=== PATIENT | male | born 1990 | race Caucasian/White ===

== ENCOUNTER 2019-04-15 10:34 | Emergency (ER) | payer BC ==
[2019-04-15] MEDS ORDERED: Lidocaine 1% 10 ML MDV ONE (12:30)
--- NOTE | 2019-04-15 15:03 | EDM.PDOC ---
ED HPI GENERAL MEDICAL PROBLEM - General Chief Complaint: Laceration Stated Complaint: LACERATION ON LEG Time Seen by Provider: 04/15/19 10:45 Source of Information: Reports: Patient History Limitations: Reports: No Limitations - History of Present Illness INITIAL COMMENTS - FREE TEXT/NARRATIVE: According to patient he was cutting a tree in his yard, and accidentally the chain saw was running and hit hie left knee and sustained a laceration over the lower aspect of the knee . Pt did clean the area and came into emergency room for evaluation. Dull pain in the area. No other injuries. The wound is presently not bleeding. Pt's last tetanus was 1 year ago. Onset: Today Onset Date: 04/15/19 Onset Time: 10:00 Location: Reports: Lower Extremity, Left Quality: Reports: Ache Severity: Mild Associated Symptoms: Denies: Confusion, Chest Pain, Cough, Diaphoresis, Fever/ Chills, Nausea/Vomiting, Weakness - Related Data Allergies Allergy/AdvReac Type Severity Reaction Status Date / Time No Known Allergies Allergy Verified 04/15/19 11:16 Home Meds: Home Meds NK [No Known Home Meds] 04/15/19 [History] Past Medical History - Past Health History Medical/Surgical History: Denies Medical/Surgical History Social & Family History - Tobacco Use Smoking Status *Q: Never Smoker ED ROS GENERAL - Review of Systems Review Of Systems: See Below Constitutional: Denies: Fever, Chills HEENT: Denies: Ear Pain, Rhinitis, Throat Pain Respiratory: Denies: Cough, Sputum Cardiovascular: Denies: Chest Pain, Lightheadedness GI/Abdominal: Denies: Abdominal Pain, Nausea, Vomiting Musculoskeletal: Reports: Joint Pain, Joint Swelling Skin: Reports: Bruising, Wound. Denies: Pruritis, Rash ED EXAM, SKIN/RASH Exam: See Below Exam Limited By: No Limitations General Appearance: Alert, WD/WN, No Apparent Distress Eye Exam: Bilateral Eye: EOMI, PERRL Ears: Normal External Exam, Normal Canal, Hearing Grossly Normal, Normal TMs Nose: Normal Inspection, Normal Mucosa, No Blood Throat/Mouth: Normal Inspection, Normal Lips, Normal Teeth, Normal Gums, Normal Oropharynx, Normal Voice, No Airway Compromise Head: Atraumatic, Normocephalic Neck: Normal Inspection, Supple, Non-Tender, Full Range of Motion Respiratory/Chest: No Respiratory Distress, Lungs Clear, Normal Breath Sounds, No Accessory Muscle Use, Chest Non-Tender Cardiovascular: Normal Peripheral Pulses, Regular Rate, Rhythm, No Edema, No Gallop, No JVD, No Murmur, No Rub Neurological: Alert, Oriented, CN II-XII Intact Skin: Warm, Other (Left knee: Ther is a 5cm long horizonta linear superficial laceration over the lower aspect of the knee, between the lower end of patella and the patellar tendon attachmenet. there are very superfical abrasions just around the laceration. There is no bleeding, but the skin is gapping about 4mm.) ED SKIN PROCEDURES - Laceration/Wound Repair Left Knee Lac/Wound length In cm: 5 Appearance: Superficial, Linear Local Anesthesia - Lidocaine (Xylocaine): 1% with EPI Local Anesthetic Volume: 3cc Skin Prep: Providone-Iodine (Betadine) Closed with: Sutures Suture Size: other (ethilon) Suture Type: Running, Other (ethilon ) Sterile Dressing Applied: Provider Tetanus Status Addressed: Yes Complications: No Course - Vital Signs Text/Narrative:: Pt has a 5 cm clean cut laceration over the lower left knee. As the laceration is close to the joint. The wound was closed under aseptic precautions. Pt advised to keep the wound clean and dry for 48 hrs. After which he can shower and have running water on it. Daily simple dressings. Avoid kneeling or bending the knee. Suture removal in 1 wk. Motrin 600mg 3 times daily as needed for pain. Last Recorded V/S: Last Vital Signs Temp 98.9 F 04/15/19 11:32 Pulse 106 H 04/15/19 11:32 Resp 18 04/15/19 11:32 BP 150/92 H 04/15/19 11:32 Pulse Ox 99 04/15/19 11:32 - Orders/Labs/Meds Meds: Medications Discontinued Medications Generic Name Dose Route Start Last Admin Trade Name Morris PRN Reason Stop Dose Admin Lidocaine HCl 10 ml 04/15/19 12:30 Xylocaine 1% .ROUTE 04/15/19 12:31 .STK-MED ONE Departure - Departure Time of Disposition: 12:00 Disposition: Home, Self-Care 01 Condition: Fair Clinical Impression: Laceration of left knee - Discharge Information *PRESCRIPTION DRUG MONITORING PROGRAM REVIEWED*: Not Applicable *COPY OF PRESCRIPTION DRUG MONITORING REPORT IN PATIENT DORIS: Not Applicable Instructions: Laceration Care, Adult, [id number] Referrals: PCP,None [Primary Care Provider] - Forms: ED Department Discharge Additional Instructions: Do not get wound wet for 48 hours, return to clinic in 7 day for suture removal. Return to clinic or ER if increased redness edema,pain or drainage - Problem List & Annotations (1) Laceration of left knee SNOMED Code(s): 63352654745719162 Code(s): S81.012A - LACERATION WITHOUT FOREIGN BODY, LEFT KNEE, INIT ENCNTR Status: Acute - Problem List Review Problem List Initiated/Reviewed/Updated: Yes - Assessment/Plan Assessment:: Left knee laceration % cms long Plan: Pt has a 5 cm clean cut laceration over the lower left knee. As the laceration is close to the joint. The wound was closed under aseptic precautions. Pt advised to keep the wound clean and dry for 48 hrs. After which he can shower and have running water on it. Daily simple dressings. Avoid kneeling or bending the knee. Suture removal in 1 wk. Motrin 600mg 3 times daily as needed for pain.
== END 2019-04-15 12:14 | disposition home or self-care (01) ==
LOC: LB.ED 10:34
DX: S81.011A Laceration without foreign body, right knee, initial encounter (principal); W29.3XXA Contact with powered garden and outdoor hand tools and machinery, initial encounter
CPT/HCPCS: 12002; 99282; J2001